=== PATIENT | male | born 1965 | race Caucasian/White ===

== ENCOUNTER 2019-01-14 12:46 | Observation (INO) | payer BC ==
[2019-01-14] MEDS ORDERED: Albuterol/Ipratropium 3.0-0.5 MG/3 ML Neb Soln NEB ONE (12:49)
[2019-01-14] MEDS ORDERED: methylPREDNISolone Sodium Succinate 125 MG/2 ML SDV IV ONE (12:49)
[2019-01-14 13:34] LABS: CHLORIDE,CL 103 mmol/L (98-107); SODIUM,NA 140 mmol/L (136-145)
[2019-01-14 13:35] LABS: ANION GAP 12.2 mmol/L (10-20)
[2019-01-14] MEDS ORDERED: Albuterol 0.083% 2.5 MG/3 ML Neb Soln NEB ONE (13:40)
--- NOTE | 2019-01-14 13:44 | CR ---
[id number] RAD/RAD Chest Portable EXAM: RAD Chest Portable INDICATION: SHORTNESS OF BREATH COMPARISON: None. DISCUSSION: Cardiomediastinal silhouette is normal in size and contour. No infiltrate, effusion, pneumothorax, or edema. IMPRESSION: Negative examination of the chest. John Kc MD 01/14/19 [id number] Thank you for allowing us to participate in the care of your patient.
--- NOTE | 2019-01-14 14:26 | EDM.PDOC ---
ED HPI GENERAL MEDICAL PROBLEM - General Chief Complaint: Respiratory Problem Stated Complaint: SOB Time Seen by Provider: 01/14/19 12:46 Source of Information: Reports: Patient History Limitations: Reports: No Limitations - History of Present Illness INITIAL COMMENTS - FREE TEXT/NARRATIVE: Pt. presents to ER with complaints of acute dyspnea. Pt. states that he has had issues with wheezing in the past and previously took albuterol. He states that he is an ex-smoker and quit approx. 6 years ago. He states that he often has symptoms of shortness of breath and wheezing. He states that he sometimes takes his 's albuterol for this. Denies any chest pain. No fever or chills. He denies any toxic exposures that he is aware of. He has never been diagnosed with asthma, COPD or other lung diseases. He states that he is often short of breath in he night. He states that he has never had a sleep study. Denies any sore throat, rhinorrhea, or other symptoms. He states that he does have chronic cough. It is non-productive. Onset: Today Onset Date: 01/14/19 Location: Reports: Chest Improves with: Reports: Rest Worsens with: Reports: Movement Context: Reports: Activity Associated Symptoms: Reports: Cough, Shortness of Breath. Denies: Diaphoresis, Fever/Chills - Related Data Allergies Allergy/AdvReac Type Severity Reaction Status Date / Time No Known Allergies Allergy Verified 01/14/19 13:15 Home Meds: Home Meds . [No Known Home Meds] 01/14/19 [History] Past Medical History - Past Health History Medical/Surgical History: Denies Medical/Surgical History Social & Family History - Tobacco Use Smoking Status *Q: Former Smoker Used Tobacco, but Quit: Yes Month/Year Tobacco Last Used: 6 years ago - Caffeine Use Caffeine Use: Reports: Soda ED ROS GENERAL - Review of Systems Review Of Systems: See Below Constitutional: Reports: No Symptoms HEENT: Reports: No Symptoms Respiratory: Reports: Shortness of Breath, Wheezing Cardiovascular: Reports: No Symptoms Endocrine: Reports: No Symptoms GI/Abdominal: Reports: No Symptoms : Reports: No Symptoms Musculoskeletal: Reports: No Symptoms Skin: Reports: No Symptoms Neurological: Reports: No Symptoms Psychiatric: Reports: No Symptoms Hematologic/Lymphatic: Reports: No Symptoms Immunologic: Reports: No Symptoms ED EXAM, GENERAL - Physical Exam Exam: See Below Exam Limited By: No Limitations General Appearance: Alert, WD/WN, No Apparent Distress Eye Exam: Bilateral Eye: EOMI, PERRL Throat/Mouth: Normal Inspection, Normal Lips, Normal Teeth, Normal Gums, Normal Oropharynx, Normal Voice, No Airway Compromise Head: Atraumatic, Normocephalic Neck: Normal Inspection, Supple, Non-Tender, Full Range of Motion Respiratory/Chest: No Accessory Muscle Use, Chest Non-Tender, Respiratory Distress (mild to moderate on arrival to ED), Decreased Breath Sounds, Wheezing Cardiovascular: Normal Peripheral Pulses, Regular Rate, Rhythm, No Edema, No JVD , No Rub Peripheral Pulses: 4+: Radial (R) GI/Abdominal: Normal Bowel Sounds, Soft, Non-Tender, No Organomegaly, No Distention, No Mass (Male) Exam: Deferred Rectal (Males) Exam: Deferred Back Exam: Normal Inspection, Full Range of Motion Extremities: Normal Inspection, Normal Range of Motion Neurological: Alert, Oriented, CN II-XII Intact, Normal Cognition, Normal Gait, No Motor/Sensory Deficits Psychiatric: Normal Affect, Normal Mood Skin Exam: Warm, Dry, Intact, Normal Color, No Rash Lymphatic: No Adenopathy EKG INTERPRETATION Rhythm: NSR [place]: Normal P-Wave: Present QRS: Normal ST-T: Normal QT: Normal Course - Vital Signs Last Recorded V/S: Last Vital Signs Temp 36.9 C 01/14/19 14:00 Pulse 103 H 01/14/19 14:00 Resp 20 01/14/19 14:00 BP 136/84 01/14/19 14:00 Pulse Ox 93 L 01/14/19 14:15 - Orders/Labs/Meds Orders: Active Orders 24 hr Category Date Time Status EKG Documentation Completion [RC] STAT Care 01/14/19 12:52 Active RT Aerosol Therapy [RC] ASDIRECTED Care 01/14/19 12:50 Active RT Aerosol Therapy [RC] ASDIRECTED Care 01/14/19 13:41 Active Sodium Chloride 0.9% [Saline Flush] Med 01/14/19 12:52 Active 10 ml FLUSH ASDIRECTED PRN Peripheral IV Insertion Adult [OM.PC] Routine Oth 01/14/19 12:52 Ordered Medication Orders Sodium Chloride (Saline Flush) 10 ml FLUSH ASDIRECTED PRN PRN Reason: Keep Vein Open Labs: Laboratory Tests 01/14/19 01/14/19 01/14/19 Range/Units 13:04 13:04 13:04 WBC 10.9 H (4.0-10.0) x10^3/uL RBC 5.74 (4.5-6.0) x10^6/uL Hgb 14.8 (14.0-18.0) g/dL Hct 46.8 (40.0-52.0) % MCV 81.5 (78.0-93.0) fL MCH 25.8 L (26.0-32.0) pg MCHC 31.6 L (32.0-36.0) g/dL RDW Coeff of Dragan 15.4 H (10.0-15.0) % Plt Count 202 (130-400) x10^3/uL Neut % (Auto) 73.0 (50.0-80.0) % Lymph % (Auto) 15.3 L (25.0-50.0) % [place] % (Auto) 7.3 (2.0-11.0) % Eos % (Auto) 4.1 H (0.0-4.0) % Baso % (Auto) 0.3 (0.2-1.2) % PT 10.7 (10.0-12.8) SEC INR 0.9 L (2.0-3.5) Sodium 140 (136-145) mmol/L Potassium 4.2 (3.5-5.1) mmol/L Chloride 103 (98-107) mmol/L Carbon Dioxide 29 (21-32) mmol/L Anion Gap 12.2 (10-20) mmol/L BUN 19 H (7-18) mg/dL Creatinine 1.3 (0.70-1.30) mg/dL Est Cr Clr Drug Dosing TNP Estimated GFR (MDRD) 58 Glucose 111 H (74-106) mg/dL Calcium 8.8 (8.5-10.1) mg/dL Corrected Calcium 9.36 (8.5-10.1) mg/dL Total Bilirubin 0.3 (0.2-1.0) mg/dL AST 19 (15-37) U/L ALT 30 (16-63) U/L Alkaline Phosphatase 93 (46-116) U/L Troponin I < 0.017 (<=0.056) ng/mL Total Protein 8.3 H (6.4-8.2) g/dL Albumin 3.3 L (3.4-5.0) g/dL Globulin 5.0 Albumin/Globulin Ratio 0.66 Meds: Medications Generic Name Dose Route Start Last Admin Trade Name Freq PRN Reason Stop Dose Admin Sodium Chloride 10 ml 01/14/19 12:52 Saline Flush FLUSH ASDIRECTED PRN Keep Vein Open Discontinued Medications Generic Name Dose Route Start Last Admin Trade Name Freq PRN Reason Stop Dose Admin Albuterol 2.5 mg 01/14/19 13:40 01/14/19 13:40 Proventil Neb Soln NEB 01/14/19 13:41 2.5 mg ONETIME ONE Administration Albuterol/Ipratropium 3 ml 01/14/19 12:49 01/14/19 13:01 Duoneb 3.0-0.5 Mg/3 Ml NEB 01/14/19 12:50 3 ml ONETIME ONE Administration Methylprednisolone Sodium Succinate 125 mg 01/14/19 12:49 01/14/19 13:01 Solu-Medrol IV 01/14/19 12:50 125 mg ONETIME ONE Administration - Radiology Interpretation Free Text/Narrative:: chest x-ray is negative for acute pathology. No obvious failure pattern or infiltrate noted. - Re-Assessments/Exams Free Text/Narrative Re-Assessment/Exam: 01/14/19 14:33 Pt. was given a duoneb and an albuterol neb in ER. He was given solu medrol 125mg IV. His peak flow after the first neb was 350 (68% predicted) and his peak flow after the second neb was 400, or approx. 86% predicted. His O2 sat. was consistently in the 88% range after treatment. Departure - Departure Time of Disposition: 14:33 Disposition: Refer to Observation Clinical Impression: COPD exacerbation, Acute bronchitis - Discharge Information - My Orders Last 24 Hours: My Active Orders 01/14/19 12:50 RT Aerosol Therapy [RC] ASDIRECTED 01/14/19 12:52 EKG Documentation Completion [RC] STAT Sodium Chloride 0.9% [Saline Flush] 10 ml FLUSH ASDIRECTED PRN Peripheral IV Insertion Adult [OM.PC] Routine 01/14/19 13:41 RT Aerosol Therapy [RC] ASDIRECTED - Assessment/Plan Admission H&P: Please use this note as an admission H&P Last 24 Hours: My Active Orders 01/14/19 12:50 RT Aerosol Therapy [RC] ASDIRECTED 01/14/19 12:52 EKG Documentation Completion [RC] STAT Sodium Chloride 0.9% [Saline Flush] 10 ml FLUSH ASDIRECTED PRN Peripheral IV Insertion Adult [OM.PC] Routine 01/14/19 13:41 RT Aerosol Therapy [RC] ASDIRECTED Plan: Pt. will be admitted observation. He is a code 1. Will continue duonebs every 4 hours. Solu Medrol 125mg every 8 hours. He will remain on O2 per NC to keep O2 say above 90%. Would like his peak flow to be above 90% prior to discharge. Also will start the patient on doxycycline 100mg twice daily for acute bronchitis.
[2019-01-14] MEDS: Enoxaparin 40 MG/0.4 ML Syringe SUBCUT SCH (15:30)
[2019-01-14] MEDS: Albuterol/Ipratropium 3.0-0.5 MG/3 ML Neb Soln NEB SCH ×3 (15:31→23:11)
[2019-01-14] MEDS: methylPREDNISolone Sodium Succinate 125 MG/2 ML SDV IVPUSH SCH (19:01)
[2019-01-14] MEDS: Sodium Chloride 0.9% 10 ML Syringe FLUSH PRN (19:02)
[2019-01-15] MEDS: methylPREDNISolone Sodium Succinate 125 MG/2 ML SDV IVPUSH SCH ×2 (01:31→10:33)
[2019-01-15] MEDS: Sodium Chloride 0.9% 10 ML Syringe FLUSH PRN ×2 (01:31→10:39)
[2019-01-15] MEDS: Albuterol/Ipratropium 3.0-0.5 MG/3 ML Neb Soln NEB SCH ×3 (03:12→10:34)
[2019-01-15] MEDS: Enoxaparin 40 MG/0.4 ML Syringe SUBCUT SCH (08:37)
[2019-01-15] MEDS ORDERED: Take Home: predniSONE 20 MG, 2 Tab Pack PO ONE (11:41)
[2019-01-15] MEDS ORDERED: Take Home: Doxycycline 100 MG Tab, 4 Tab Pack PO ONE (11:41)
[2019-01-15] MEDS ORDERED: Take Home: Albuterol 6.7 GM Inhaler, 1 Inhaler Pack INH ONE (11:41)
--- NOTE | 2019-01-15 12:28 | PCM.DCSUM1 ---
Discharge Summary - Hospital Course Free Text/Narrative:: Pt. states that he is feeling much better this AM. He was admitted with COPD exacerbation and shortness of breath yesterday. His chest x-ray at that time was negative for acute pathology. He was started on duoneb breathing treatments every 4 hours and he states that this has helped significantly. He was also started on IV solu medrol and doxycycline 100mg twice daily. He has been eating well and has not been having any distress, according to family and nursing. Pt. was noted to have an elevation in his white count today. Pt. has been maintaining O2 saturations in the mid to high 90s in O2 per NC at 2L/min. - Discharge Data Discharge Date: 01/15/19 Discharge Disposition: Home, Self-Care 01 Condition: Good - Discharge Diagnosis/Problem(s) (1) Acute bronchitis SNOMED Code(s): 61602213 ICD Code: J20.9 - ACUTE BRONCHITIS, UNSPECIFIED Status: Acute Current Visit: Yes (2) COPD exacerbation SNOMED Code(s): 042616932 ICD Code: J44.1 - CHRONIC OBSTRUCTIVE PULMONARY DISEASE W (ACUTE) EXACERBATION Status: Acute Current Visit: Yes - Discharge Plan *PRESCRIPTION DRUG MONITORING PROGRAM REVIEWED*: Yes *COPY OF PRESCRIPTION DRUG MONITORING REPORT IN PATIENT NARA: No Home Medications: Home Meds . [No Known Home Meds] 01/14/19 [History] Patient Handouts: Chronic Obstructive Pulmonary Disease, [id number], Acute Bronchitis, Adult, [id number] Forms: ED Department Discharge Referrals: Pam Connors DO [Primary Care Provider] - - Discharge Summary/Plan Comment DC Time >30 min.: Yes Discharge Summary/Plan Comment: Pt. states that he refuses any further treatment and states he is leaving today. I advised staying another day, weaning his O2, repeating his chest x-ray and continuing his treatment but he refuses. He was advised to return to ED if he changes his mind. He was started on prednisone 40mg once daily for 6 days, doxycycline 100mg twice daily for 10 days, and albuterol inhaler 2 puffs every 4 -6 hours as needed for shortness of breath. He was desaturating into the 80s when he slept at night and needs to get set up with CPAP as soon as possible. All questions were answered. - General Info Date of Service: 01/15/19 Functional Status: Reports: Pain Controlled - Review of Systems General: Reports: No Symptoms HEENT: Reports: No Symptoms Pulmonary: Reports: Shortness of Breath, Wheezing Cardiovascular: Reports: No Symptoms Gastrointestinal: Reports: No Symptoms Genitourinary: Reports: No Symptoms Musculoskeletal: Reports: No Symptoms Skin: Reports: No Symptoms Neurological: Reports: No Symptoms Psychiatric: Reports: No Symptoms - Patient Data Vitals - Most Recent: Last Vital Signs Temp 37.0 C 01/15/19 10:00 Pulse 104 H 01/15/19 10:00 Resp 22 H 01/15/19 10:00 BP 137/78 01/15/19 10:00 Pulse Ox 96 01/15/19 10:00 Weight - Most Recent: 142.882 kg I&O - Last 24 hours: Intake & Output 01/14/19 01/15/19 01/15/19 22:59 06:59 14:59 Intake Total 700 Output Total 1200 Balance -500 Lab Results - Last 24 hrs: Laboratory Results - last 24 hr 01/14/19 01/14/19 01/14/19 Range/Units 13:04 13:04 13:04 WBC 10.9 H (4.0-10.0) x10^3/uL RBC 5.74 (4.5-6.0) x10^6/uL Hgb 14.8 (14.0-18.0) g/dL Hct 46.8 (40.0-52.0) % MCV 81.5 (78.0-93.0) fL MCH 25.8 L (26.0-32.0) pg MCHC 31.6 L (32.0-36.0) g/dL RDW Coeff of Dragan 15.4 H (10.0-15.0) % Plt Count 202 (130-400) x10^3/uL Neut % (Auto) 73.0 (50.0-80.0) % Lymph % (Auto) 15.3 L (25.0-50.0) % [place] % (Auto) 7.3 (2.0-11.0) % Eos % (Auto) 4.1 H (0.0-4.0) % Baso % (Auto) 0.3 (0.2-1.2) % PT 10.7 (10.0-12.8) SEC INR 0.9 L (2.0-3.5) Sodium 140 (136-145) mmol/L Potassium 4.2 (3.5-5.1) mmol/L Chloride 103 (98-107) mmol/L Carbon Dioxide 29 (21-32) mmol/L Anion Gap 12.2 (10-20) mmol/L BUN 19 H (7-18) mg/dL Creatinine 1.3 (0.70-1.30) mg/dL Est Cr Clr Drug Dosing TNP Estimated GFR (MDRD) 58 Glucose 111 H (74-106) mg/dL Calcium 8.8 (8.5-10.1) mg/dL Corrected Calcium 9.36 (8.5-10.1) mg/dL Total Bilirubin 0.3 (0.2-1.0) mg/dL AST 19 (15-37) U/L ALT 30 (16-63) U/L Alkaline Phosphatase 93 (46-116) U/L Troponin I < 0.017 (<=0.056) ng/mL Total Protein 8.3 H (6.4-8.2) g/dL Albumin 3.3 L (3.4-5.0) g/dL Globulin 5.0 Albumin/Globulin Ratio 0.66 // Range/Units 07:50 WBC 12.8 H (4.0-10.0) x10^3/uL RBC 5.57 (4.5-6.0) x10^6/uL Hgb 14.4 (14.0-18.0) g/dL Hct 45.1 (40.0-52.0) % MCV 81.0 (78.0-93.0) fL MCH 25.9 L (26.0-32.0) pg MCHC 31.9 L (32.0-36.0) g/dL RDW Coeff of Dragan 15.5 H (10.0-15.0) % Plt Count 207 (130-400) x10^3/uL Neut % (Auto) (50.0-80.0) % Lymph % (Auto) (25.0-50.0) % [place] % (Auto) (2.0-11.0) % Eos % (Auto) (0.0-4.0) % Baso % (Auto) (0.2-1.2) % PT (10.0-12.8) SEC INR (2.0-3.5) Sodium (136-145) mmol/L Potassium (3.5-5.1) mmol/L Chloride (98-107) mmol/L Carbon Dioxide (21-32) mmol/L Anion Gap (10-20) mmol/L BUN (7-18) mg/dL Creatinine (0.70-1.30) mg/dL Est Cr Clr Drug Dosing Estimated GFR (MDRD) Glucose (74-106) mg/dL Calcium (8.5-10.1) mg/dL Corrected Calcium (8.5-10.1) mg/dL Total Bilirubin (0.2-1.0) mg/dL AST (15-37) U/L ALT (16-63) U/L Alkaline Phosphatase (46-116) U/L Troponin I (<=0.056) ng/mL Total Protein (6.4-8.2) g/dL Albumin (3.4-5.0) g/dL Globulin Albumin/Globulin Ratio Med Orders - Current: Current Medications Albuterol/Ipratropium (Duoneb 3.0-0.5 Mg/3 Ml) 3 ml NEB Q4HRRT [facility] [place] Last Admin: 01/15/19 10:34 Dose: 3 ml Enoxaparin Sodium (Lovenox) 40 mg SUBCUT DAILY [facility] [place] Last Admin: 01/15/19 08:37 Dose: 40 mg Methylprednisolone Sodium Succinate (Solu-Medrol) 125 mg IVPUSH Q8H [facility] [place] Last Admin: 01/15/19 10:33 Dose: 125 mg Sodium Chloride (Saline Flush) 10 ml FLUSH ASDIRECTED PRN PRN Reason: Keep Vein Open Last Admin: 01/15/19 10:39 Dose: 10 ml Discontinued Medications Albuterol (Proventil Neb Soln) 2.5 mg NEB ONETIME ONE Stop: 01/14/19 13:41 Last Admin: 01/14/19 13:40 Dose: 2.5 mg Albuterol (Take Home: Albuterol 6.7 Gm, 1 Inh Pack) 1 packet INH ONETIME ONE Stop: 01/15/19 11:42 Albuterol/Ipratropium (Duoneb 3.0-0.5 Mg/3 Ml) 3 ml NEB ONETIME ONE Stop: 01/14/19 12:50 Last Admin: 01/14/19 13:01 Dose: 3 ml Doxycycline Monohydrate (Take Home: Doxycycline 100 Mg, 4 Tab Pack) 1 packet PO ONETIME ONE Stop: 01/15/19 11:42 Methylprednisolone Sodium Succinate (Solu-Medrol) 125 mg IV ONETIME ONE Stop: 01/14/19 12:50 Last Admin: 01/14/19 13:01 Dose: 125 mg Prednisone (Take Home: Prednisone 20 Mg, 2 Tab Pack) 1 packet PO ONETIME ONE Stop: 01/15/19 11:42 - Exam General: Reports: Alert, Oriented HEENT: Reports: Pupils Equal, Pupils Reactive, EOMI Neck: Reports: Supple Lungs: Reports: Wheezing Cardiovascular: Reports: Regular Rate, Regular Rhythm GI/Abdominal Exam: Normal Bowel Sounds, Soft, Non-Tender, No Organomegaly (Male) Exam: Deferred Rectal (Males) Exam: Deferred Back Exam: Reports: Normal Inspection, Full Range of Motion Extremities: Normal Inspection, Non-Tender, No Pedal Edema, Normal Capillary Refill Skin: Reports: Warm, Dry Neurological: Reports: No New Focal Deficit Psy/Mental Status: Reports: Alert, Normal Affect, Normal Mood
== END 2019-01-15 13:10 | disposition home or self-care (01) ==
LOC: VM.ED 12:46 → VM.MS 14:01
PROVIDERS: ADMIT Physician Assistant; ATTEND Physician Assistant
DX: J44.1 Chronic obstructive pulmonary disease with (acute) exacerbation (principal); J20.9 Acute bronchitis, unspecified; D72.829 Elevated white blood cell count, unspecified; Z87.891 Personal history of nicotine dependence
CPT/HCPCS: 36415; 71045; 80053; 84484; 85025; 85027; 85610; 93005; 94640; 94760; 96372; 96374; 99285-25; A9270-GY; G0378; J1650; J2930; J7613-GY; J7620-GY